=== PATIENT | female | born 1995 | race Hispanic/Latino ===

== ENCOUNTER 2023-04-23 10:04 | Emergency (ER) | payer SELFPAY ==
--- OUTSIDE RECORDS SUMMARY | 2023-04-23 10:33 | XMS REPORT | Continuity of Care Document ---
:1995 Author Organization [facility] t Address [address] [facility] [address] [place] [address] Care Team Providers Name Role Phone Alina Carrasco APRN Attending Clinician Payers Payer Name Policy Type Policy Number Effective Date Expiration Date S ource [employer] [place] [id number] 2023 00:00:00 WOMEN Problems This patient has no known problems. Allergies, Adverse Reactions, Alerts This patient has no known allergies or adverse reactions. Social History Social Habit Start Date Stop Date Quantity Comments Source Tobacco use and 2023-03-28 2023-03-28 User of smokeless [facility] exposure 00:00:00 00:00:00 tobacco Alcohol intake 2023-03-28 2023-03-28 Current drinker of [facility] 00:00:00 00:00:00 alcohol (finding) History SDOH 2023-03-28 2023-03-28 2 [facility] Alcohol Frequency 00:00:00 00:00:00 History SDOH 2023-03-28 2023-03-28 2 [facility] Alcohol Std Drinks 00:00:00 00:00:00 History SDOH 2023-03-28 2023-03-28 2 [facility] Alcohol Binge 00:00:00 00:00:00 Education 2023-03-28 2023-03-28 13 [facility] 00:00:00 00:00:00 Tobacco Comment 2023-03-28 2023-03-28 Vaping [facility] 00:00:00 00:00:00 Alcohol Comment 2023-03-28 2023-03-28 Rare [facility] 00:00:00 00:00:00 Sex Assigned At [birth year] [facility] 00:00:00 00:00:00 Smoking Status Start Date Stop Date Source Never smoked tobacco [facility] Medications Ordered Filled Start Stop Current Ordering Indication Dosage Frequency Signature Comments Components Source Medication Medication Date Date Medication? Clinician (SIG) Name Name medroxyPROG 2023- Yes 1474 150mg [facility] ESTERone 03-28 Health (Depo-Prove 15:00: 14:59 ra) 00 :00 injection 150 mg medroxyPROG 2023- Yes 1474 150mg 150 mg, U T ESTERone 03-28 Intr[facility]cu [facility] (Depo-Prove 15:00: 14:59 lar, Every ra) 00 :00 3 months, injection First dose 150 mg on Fri03/28/23 at 1000, For 4 doses
I ndications : Contracept gerald Therapy metroNIDAZO 2022- Yes [id number] 500mg Q.5D Take 1 [facility] LE (Flagyl) 03-28 tablet [facility] 500 MG 00:00: 04:59 (500 mg tablet 00 :00 total) by mouth in the morning and 1 tablet (500 mg total) in the evening. Do all this for 7 days. Vital Signs Vital Name Observation Time Observation Value Comments Source Systolic blood pressure 2023-03-28 14:21:00 119 mm[Hg] [facility] Diastolic blood pressure 2023-03-28 14:21:00 82 mm[Hg] [facility] Heart rate 2023-03-28 14:21:00 74 /min [facility] Body temperature 2023-03-28 14:21:00 36.78 Renita [facility] Respiratory rate 2023-03-28 14:21:00 20 /min [facility] Body height 2023-03-28 14:21:00 160 cm [facility] Body weight 2023-03-28 14:21:00 51.37 kg [facility] BMI 2023-03-28 14:21:00 20.07 kg/m2 [facility] Oxygen saturation in 2023-03-28 14:21:00 100 /min [facility] Arterial blood by Pulse oximetry Procedures This patient has no known procedures. Encounters Start End Encounter Admission Attending Care Care Encounter Source Date/Time Date/Time Type Type Clinicians Facility Department ID 2023-03-28 Outpatient [facility] ER [id number] [place] 00:38:[id number] [facility] 2023-03-27 Outpatient [facility] ER [id number] [place] 13:27:[id number] [facility] 2023-03-28 2023-03-28 Office UMU Carrasco [facility] [id number] [place] 09:15:00 10:06:31 Visit Alina ADAM [id number] Handy HERNANDEZ 1 [id number] Results This patient has no known results.
[2023-04-23] MEDS ORDERED: ACETAMINOPHEN 325 MG TABLET ONE (12:24)
[2023-04-23 12:33] LABS: Specific Gravity 1.021 (1.005-1.030)
[2023-04-23 12:37] LABS: Specific Gravity 1.021 (1.005-1.030); Urine Bacteria None Seen /HPF (<20); Urine Bilirubin NEGATIVE (Negative); Urine Blood Negative (Negative); Urine Clarity Clear (Clear); Urine Color Light-Yellow (Yellow); Urine Glucose NEGATIVE (Negative); Urine Mucus Slight /HPF (None Seen); Urine Protein TRACE (Negative); Urine RBC <5 /HPF (None Seen); Urine Urobilinogen 1+ (Normal)
--- NOTE | 2023-04-23 13:01 | ER ---
Nurse's Notes [facility] Name: Rand Epps Age: 27 yrs Sex: Female : 1995 Arrival Date: 04/23/2023 Time: 10:04 Bed 14 Private MD: Diagnosis: Viral infection, unspecified;Acute upper respiratory infection, unspecified Presentation: 04/23 10:16 Chief complaint: Patient states: Body aches, chills, headache, sore throat and nausea x ph 2 days. Coronavirus screen: Vaccine status: Patient reports being unvaccinated. Ebola Screen: No symptoms or risks identified at this time. Initial Sepsis Screen: Does the patient meet any 2 criteria? No. Patient's initial sepsis screen is negative. Does the patient have a suspected source of infection? No. Patient's initial sepsis screen is negative. Risk Assessment: Do you want to hurt yourself or someone else? Patient reports no desire to harm self or others. Onset of symptoms was April 23, 2023. 10:16 Method Of Arrival: Ambulatory ph 10:16 Acuity: JESUS 4 ph Triage Assessment: 10:18 General: Appears in no apparent distress. comfortable, Behavior is calm, cooperative, ph appropriate for age. Neuro: Level of Consciousness is awake, alert, obeys commands, Oriented to person, place, time, situation. 11:10 Headache History: The patient has had previous headaches. Pain: Complains of pain in [facility] head Pain currently is 8 out of 10 on a pain scale. Pain began 2-3 days ago. Also complains of nausea. 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 - Social history:: Smoking status: Reported history of juuling and/or vaping. - Family history:: not pertinent. - Hospitalizations: : No recent hospitalization is reported. Screenin:10 [facility] ED Fall Risk Assessment (Adult) History of falling in the last 3 months, [facility] including since admission No falls in past 3 months (0 pts). Abuse screen: Denies threats or abuse. Denies injuries from another. Nutritional screening: No deficits noted. Tuberculosis screening: No symptoms or risk factors identified. Assessment: 11:08 Reassessment: See triage assessment. ma1 11:08 Pain: Complains of pain in generalized Pain currently is 8 out of 10 on a pain scale. nj1 12:19 Reassessment: Patient appears in no apparent distress at this time. Patient and/or nj1 family updated on plan of care and expected duration. Pain level reassessed. Patient is alert, oriented x 3, equal unlabored respirations, skin warm/dry/pink. 13:22 Reassessment: Patient appears in no apparent distress at this time. Patient and/or nj1 family updated on plan of care and expected duration. Pain level reassessed. Patient is alert, oriented x 3, equal unlabored respirations, skin warm/dry/pink. Patient states feeling better. Vital Signs: 10:16 BP 132 / 90; Pulse 83; Resp 18; Temp 98.3; Pulse Ox 100% on R/A; Weight 54.43 kg; ph Height 5 ft. 3 in. ; 11:10 BP 122 / 93; Pulse 86; Resp 18; Pulse Ox 100% on R/A; Pain 8/10; nj1 12:16 BP 105 / 83; Pulse 73; Resp 16; Temp 98.6(O); Pulse Ox 100% ; nj1 13:22 BP 106 / 71; Pulse 66; Resp 16; Pulse Ox 100% ; Pain 6/10; nj1 10:16 Body Mass Index 21.26 (54.43 kg, 160.02 cm) ph 11:10 Pain Scale: Adult [facility] 13:22 Pain Scale: Adult [facility] ED Course: 10:08 Patient arrived in ED. mg5 10:10 Jose Mendoza MD is Attending Physician. rn 10:18 Triage completed. ph 10:18 Hellen Burch, RAIN is Primary Nurse. nj1 10:18 Arm band placed on Patient placed in an exam room, on a stretcher. ph 11:10 Patient has correct armband on for positive identification. Bed in low position. Call [facility] light in reach. Adult w/ patient. 11:10 Provided Education on: fall precautions. nj1 13:49 No provider procedures requiring assistance completed. Patient did not have IV access [facility] during this emergency room visit. Administered Medications: 12:16 Drug: Acetaminophen PO 650 mg Route: PO; nj1 13:22 Follow up: Response: No adverse reaction; Pain is decreased nj1 Medication: 13:49 VIS not applicable for this client. nj1 Outcome: 13:01 Discharge ordered by . rn 13:49 Discharged to home ambulatory. nj1 13:49 Condition: stable 13:49 Discharge instructions given to patient, Instructed on discharge instructions, follow up and referral plans. Demonstrated understanding of instructions, follow-up care, medications, Prescriptions given X 1. 13:49 Patient left the ED. nj1 Signatures: Jose Mendoza MD MD rn Hall, Patricia, RN RN ph Jaco, Norma, RN RN nj1 Mis Johnson mg5 Corrections: (The following items were deleted from the chart) 13:48 13:22 Pulse 66bpm; Resp 16bpm; Pulse Ox 100%; nj1 nj1
--- NOTE | 2023-04-23 13:01 | EDPHYS ---
Physician Documentation [facility] Name: Rand Epps Age: 27 yrs Sex: Female : 1995 Arrival Date: 04/23/2023 Time: 10:04 Bed 14 Private MD: ED Physician Jose Mendoza HPI: 04/23 10:49 This 27 yrs old Female presents to ER via Ambulatory with complaints of rn Headache, BODY ACHES, CHILLS, Nausea. 10:52 The patient reports fever, not measured (subjective). Onset: The symptoms/episode rn began/occurred 2 day(s) ago. Modifying factors: there are no obvious modifying factors. Associated signs and symptoms: Pertinent positives: chills, nausea, runny nose, sinus congestion, Pertinent negatives: abdominal pain, altered mental status, chest pain, shortness of breath, swelling, vomiting. Severity of symptoms: At their worst the symptoms were mild in the emergency department the symptoms are unchanged. The patient has not experienced similar symptoms in the past. The patient has not recently seen a physician. Pt reports fever, chills, headache, runny nose, congestion, + nausea. 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 - Social history:: Smoking status: Reported history of juuling and/or vaping. - Family history:: not pertinent. - Hospitalizations: : No recent hospitalization is reported. ROS: 10:52 Constitutional: + fever and chills Eyes: Negative for injury, pain, redness, and rn outpatient surgery, ENT: + congestion and sore throat Neck: Negative for injury, pain, and swelling, Cardiovascular: Negative for chest pain, palpitations, and edema, Respiratory: Negative for shortness of breath, cough, wheezing, and pleuritic chest pain, Abdomen/GI: + nausea, negative for abd pain : Negative for injury, bleeding, discharge, and swelling, MS/Extremity: Negative for injury and deformity, Skin: Negative for injury, rash, and discoloration, Neuro: + headache and generalized weakness Exam: 10:52 Constitutional: This is a well developed, well nourished patient who is awake, alert, rn and in no acute distress. Head/Face: Normocephalic, atraumatic. ENT: + pharyngeal erythema, uvula midline, no stridor, no exudate Cardiovascular: Regular rate and rhythm. No pulse deficits. Respiratory: No increased work of breathing, no retractions or nasal flaring. Skin: Warm, dry with normal turgor. Normal color with no rashes, no lesions, and no evidence of cellulitis. MS/ Extremity: Pulses equal, no cyanosis. Neuro: Awake and alert, GCS 15 Vital Signs: 10:16 BP 132 / 90; Pulse 83; Resp 18; Temp 98.3; Pulse Ox 100% on R/A; Weight 54.43 kg; ph Height 5 ft. 3 in. ; 11:10 BP 122 / 93; Pulse 86; Resp 18; Pulse Ox 100% on R/A; Pain 8/10; nj1 12:16 BP 105 / 83; Pulse 73; Resp 16; Temp 98.6(O); Pulse Ox 100% ; nj1 13:22 BP 106 / 71; Pulse 66; Resp 16; Pulse Ox 100% ; Pain 6/10; nj1 10:16 Body Mass Index 21.26 (54.43 kg, 160.02 cm) ph 11:10 Pain Scale: Adult nj1 13:22 Pain Scale: Adult nj1 MDM: 10:10 Patient medically screened. rn 13:00 Differential diagnosis: viral Infection, bacterial infection, URI. Differential rn diagnosis: UTI. Data reviewed: vital signs, nurses notes. Data reviewed: lab test result(s), and as a result, I will discharge patient. Counseling: I had a detailed discussion with the patient and/or guardian regarding: the historical points, exam findings, and any diagnostic results supporting the discharge/admit diagnosis, lab results, the need for outpatient follow up, to return to the emergency department if symptoms worsen or persist or if there are any questions or concerns that arise at home. Special discussion: I discussed with the patient/guardian in detail that at this point there is no indication for admission to the hospital. It is understood, however, that if the symptoms persist or worsen the patient needs to return immediately for re-evaluation. 04/23 10:25 Order name: SARS-COV-2 RT PCR; Complete Time: 12:13 rn 04/23 10:25 Order name: Flu; Complete Time: 12:13 rn 04/23 10:25 Order name: Strep rn 04/23 10:25 Order name: Test, Urine; Complete Time: 13:00 rn 04/23 10:25 Order name: Urinalysis w/ reflexes; Complete Time: 13:00 rn 04/23 12:03 Order name: Throat Culture EDMS Administered Medications: 12:16 Drug: Acetaminophen PO 650 mg Route: PO; nj1 13:22 Follow up: Response: No adverse reaction; Pain is decreased nj1 Disposition Summary: 04/23/23 13:01 Discharge Ordered Location: Home rn Problem: new rn Symptoms: have improved rn Condition: Stable rn Diagnosis - Viral infection, unspecified rn - Acute upper respiratory infection, unspecified rn Followup: rn - With: Private Physician - When: As needed - Reason: Recheck today's complaints, Re-evaluation by your physician Discharge Instructions: - Discharge Summary Sheet rn - Upper Respiratory Infection, Adult rn - Viral Respiratory Infection rn Forms: - Medication Reconciliation Form rn - Thank You Letter rn - Antibiotic environmental engineering intern - Prescription Opioid Use rn - Patient Portal Instructions rn - Work release form nj1 Prescriptions: - ondansetron 4 mg Oral Tablet,disintegrating - take 1 tablet by ORAL route every 8 hours As needed; 10 tablet; Refills: 0, rn Product Selection Permitted Signatures: Dispatcher [employer] Jose Kirk MD MD rn Hall, Patricia RN Hellen Arthur ph, RN RN nj1
[2023-04-23 14:10] VITALS: O2SAT 100
[2023-04-23 14:12] VITALS: TEMP 98.6
[2023-04-23 14:13] VITALS: BP 106/71
== END 2023-04-23 13:49 | disposition home or self-care (01) ==
LOC: ER 10:04
DX: B34.9 Viral infection, unspecified (principal); J06.9 Acute upper respiratory infection, unspecified; Z20.822 Contact with and (suspected) exposure to COVID-19
CPT/HCPCS: 81001; 81025; 87070; 87081; 87635; 87804; 99283

== ENCOUNTER 2023-07-27 20:18 | Emergency (ER) | payer SELFPAY ==
--- OUTSIDE RECORDS SUMMARY | 2023-07-27 20:25 | XMS REPORT | Continuity of Care Document ---
:1995 Author Organization [facility] t Address [address] [facility] [address] [place] [id number] Care Team Providers Name Role Phone Alina Carrasco APRN Attending Clinician Payers Payer Name Policy Type Policy Number Effective Date Expiration Date S ource [employer] [place] [id number] 2023 00:00:00 WOMEN Problems This patient has no known problems. Allergies, Adverse Reactions, Alerts This patient has no known allergies or adverse reactions. Social History Social Habit Start Date Stop Date Quantity Comments Source Tobacco use and 2023-03-28 2023-03-28 User of smokeless [facility] exposure 00:00:00 00:00:00 tobacco Alcohol intake 2023-03-28 2023-03-28 Current drinker of [facility] 00:00:00 00:00:00 alcohol (finding) History SDMO 2023-03-28 2023-03-28 2 [facility] Alcohol Frequency 00:00:00 00:00:00 History SDOH 2023-03-28 2023-03-28 2 [facility] Alcohol Std Drinks 00:00:00 00:00:00 History SDOH 2023-03-28 2023-03-28 2 [facility] Alcohol Binge 00:00:00 00:00:00 Education 2023-03-28 2023-03-28 13 [facility] 00:00:00 00:00:00 Tobacco Comment 2023-03-28 2023-03-28 Vaping [facility] 00:00:00 00:00:00 Alcohol Comment 2023-03-28 2023-03-28 Rare [facility] 00:00:00 00:00:00 Sex Assigned At [address] 1995 [facility] 00:00:00 00:00:00 Smoking Status Start Date Stop Date Source Never smoked tobacco [facility] Medications Ordered Filled Start Stop Current Ordering Indication Dosage Frequency Signature Comments Components Source Medication Medication Date Date Medication? Clinician (SIG) Name Name medroxyPROG 2023- No 1474 150mg [facility] ESTERone 03-28 Health (Depo-Prove 15:00: 14:59 ra) 00 :00 injection 150 mg medroxyPROG 2023- No 1474 150mg 150 mg, U T ESTERone 03-28 Intramuscu [facility]al [facility] (Depo-Prove 15:00: 14:59 lar, Every ra) 00 :00 3 months, injection First dose 150 mg on Fri03/28/23 at 1000, For 4 doses
I ndications : Contracept gerald Therapy metroNIDAZO 2022- No [id number] 500mg Q.5D Take 1 UT LE (Flagyl) 03-28 tablet [facility] 500 MG 00:00: 04:59 (500 mg tablet 00 :00 total) by mouth in the morning and 1 tablet (500 mg total) in the evening. Do all this for 7 days. Vital Signs Vital Name Observation Time Observation Value Comments Source Systolic blood pressure 2023-03-28 14:21:00 119 mm[Hg] [facility] Diastolic blood pressure 2023-03-28 14:21:00 82 mm[Hg] [facility] Heart rate 2023-03-28 14:21:00 74 /min [facility] Body temperature 2023-03-28 14:21:00 36.78 Renita [facility] Respiratory rate 2023-03-28 14:21:00 20 /min [facility] Body height 2023-03-28 14:21:00 160 cm [facility] Body weight 2023-03-28 14:21:00 51.37 kg [facility] BMI 2023-03-28 14:21:00 20.07 kg/m2 [facility] Oxygen saturation in 2023-03-28 14:21:00 100 /min [facility] Arterial blood by Pulse oximetry Procedures This patient has no known procedures. Encounters Start End Encounter Admission Attending Care Care Encounter Source Date/Time Date/Time Type Type Clinicians Facility Department ID 2023-03-28 Outpatient [facility] [id number] [place] 00:38:41 [id number] [facility] 2023-03-27 Outpatient [facility] [id number] [place] 13:27:03 [id number] [facility] 2023-03-28 2023-03-28 Office UMU Carrasco [facility] [id number] [place] 09:15:00 10:06:31 Visit Alina [facility] [id number] Handy HERNANDEZ 1 [id number] Results This patient has no known results.
[2023-07-27] MEDS ORDERED: NA CHLORIDE 0.9% 2,000 ML ONE (21:23)
[2023-07-27 21:34] LABS: Absolute Lymphocytes (CBC) 3.1 K/uL (0.7-4.9); Hematocrit 37.3 % (36.0-45.0); Lymphocytes % 46.8 % (15.3-44.8); MCV 87.5 fL (80-100); MPV 9.3 fL (7.6-11.3); Platelets 233 thou/uL (152-406); RBC Red Blood Cell Count 4.26 M/uL (3.86-4.86)
--- NOTE | 2023-07-27 21:45 | RAD REPORT ---
EXAM DESCRIPTION: US - Transvaginal Study Probe - 07/27/2023 9:37 pm CLINICAL HISTORY: pain Pelvic pain. COMPARISON: No comparisons FINDINGS: The uterus is normal in size, shape and echotexture. The uterus measures 7.2 x 5 x 5.5 cm The endometrial stripe measures 4 mm, normal. Both ovaries are normal in size, shape and echotexture. The right ovary measures 4.1 x 2.5 x 2.8 cm with volume of 14.7 cc. The left ovary measures 3.1 x 2 x 1.6 cm with volume of 5.2 cc. Several foll icles present in the right ovary. No adnexal masses. Normal Doppler blood flow was demonstrated to both ovaries. Small volume of pelvic free fluid. IMPRESSION: Small volume of pelvic free fluid which is likely physiologic.Bilateral ovarian blood fl ow.
[2023-07-27 21:53] LABS: Albumin 4.1 g/dL (3.4-5.0); Bilirubin Total 0.6 mg/dL (0.2-1.0); Potassium 3.2 mEq/L (3.5-5.1); Protein, Total 7.6 g/dL (6.4-8.2)
[2023-07-27 21:55] LABS: Specific Gravity 1.022 (1.005-1.030)
[2023-07-27 22:09] LABS: Specific Gravity 1.022 (1.005-1.030); Urine Bacteria None Seen /HPF (<20); Urine Bilirubin NEGATIVE (Negative); Urine Blood 3+ (OVER) (Negative); Urine Clarity Extremely Turbid (Clear); Urine Color Red (Yellow); Urine Glucose NEGATIVE (Negative); Urine Protein 2+ (Negative); Urine RBC >50 /HPF (None Seen); Urine Urobilinogen Normal (Normal)
[2023-07-27] MEDS ORDERED: FENTANYL CITR 100 MCG/2 ML ONE (22:25)
--- NOTE | 2023-07-27 22:35 | RAD REPORT ---
EXAM DESCRIPTION: RAD - Chest Single View - 07/27/2023 10:31 pm CLINICAL HISTORY: ABD PAIN COMPARISON: No comparisons FINDINGS: Lines: None. Lungs: No evidence of edema or pneumonia. Pleural: No significant pleural effusions or pneumothorax. Cardiac: The heart size is within normal limits. Mediastinum: Within normal limits. Bones: No acute fractures. Other: None IMPRESSION: No acute cardiopulmonary disease.
--- NOTE | 2023-07-27 23:54 | EDPHYS ---
Physician Documentation [facility] Name: Rand Epps Age: 27 yrs Sex: Female : 1995 Arrival Date: 07/27/2023 Time: 20:18 Bed 6 Private MD: ED Physician Peña Ellis HPI: 07/27 20:49 This 27 yrs old Female presents to ER via Ambulatory with complaints of snw Abdominal Pain, Pelvic Pain, Nausea/Vomiting. 20:49 The patient presents with abdominal pain in the left lower quadrant. Onset: The snw symptoms/episode began/occurred acutely, 2 day(s) ago, and became worse and became persistent. Associated signs and symptoms: Pertinent positives: nausea and vomiting, vaginal discharge, vaginal bleeding. The symptoms are described as sharp, shooting. Severity of pain: At its worst the pain was moderate severe. The patient has not experienced similar symptoms in the past. It is unknown whether or not the patient has recently seen a physician. 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 - Social history:: Smoking status: Patient denies any tobacco usage or history of. ROS: 20:48 Eyes: Negative for injury, pain, redness, and discharge, ENT: Negative for injury, snw pain, and discharge, Neck: Negative for injury, pain, and swelling, Cardiovascular: Negative for chest pain, palpitations, and edema, Respiratory: Negative for shortness of breath, cough, wheezing, and pleuritic chest pain, 20:48 Back: Negative for injury and pain, MS/Extremity: Negative for injury and deformity, Skin: Negative for injury, rash, and discoloration, Neuro: Negative for headache, weakness, numbness, tingling, and seizure, Psych: Negative for depression, anxiety, suicide ideation, homicidal ideation, and hallucinations, 20:48 Constitutional: Positive for body aches, chills, fatigue, malaise, 20:48 Abdomen/GI: Positive for abdominal pain, nausea and vomiting, of the left lower quadrant, 20:48 : Positive for vaginal bleeding, Exam: 20:47 Constitutional: This is a well developed, well nourished patient who is awake, alert, snw with chills, LMP 2 weeks ago and then had brown discharge with significant vag bleeding two days ago Head/Face: Normocephalic, atraumatic. Eyes: Pupils equal round and reactive to light, extra-ocular motions intact. Lids and lashes normal. Conjunctiva and sclera are non-icteric and not injected. Cornea within normal limits. Periorbital areas with no swelling, redness, or edema. ENT: Nares patent. No nasal discharge, no septal abnormalities noted. Tympanic membranes are normal and external auditory canals are clear. Oropharynx with no redness, swelling, or masses, exudates, or evidence of obstruction, uvula midline. Mucous membranes moist. Neck: Trachea midline, no thyromegaly or masses palpated, and no cervical lymphadenopathy. Supple, full range of motion without nuchal rigidity, or vertebral point tenderness. No Meningismus. Chest/axilla: Normal chest wall appearance and motion. Nontender with no deformity. No lesions are appreciated. Cardiovascular: Regular rate and rhythm with a normal S1 and S2. No gallops, murmurs, or rubs. Normal PMI, no JVD. No pulse deficits. Respiratory: Lungs have equal breath sounds bilaterally, clear to auscultation and percussion. No rales, rhonchi or wheezes noted. No increased work of breathing, no retractions or nasal flaring. 20:47 Back: No spinal tenderness. No costovertebral tenderness. Full range of motion. Skin: Warm, dry with normal turgor. Normal color with no rashes, no lesions, and no evidence of cellulitis. MS/ Extremity: Pulses equal, no cyanosis. Neurovascular intact. Full, normal range of motion. Neuro: Awake and alert, GCS 15, oriented to person, place, time, and situation. Cranial nerves II-XII grossly intact. Motor strength 5/5 in all extremities. Sensory grossly intact. Cerebellar exam normal. Normal gait. Psych: Awake, alert, with orientation to person, place and time. Behavior, mood, and affect are within normal limits. 20:47 Abdomen/GI: Inspection: abdomen appears normal, Bowel sounds: normal, Palpation: severe abdominal tenderness, in the left lower quadrant, Vital Signs: 20:39 BP 137 / 97; Pulse 73; Resp 16; Temp 98.7; Pulse Ox 100% ; Weight 54.43 kg; Height 5 ap3 ft. 4 in. ; 22:54 BP 107 / 67; Pulse 66; Resp 18; Pulse Ox 100% on R/A; Pain 0/10; la4 22:58 Pain 0/10; la4 07/28 00:22 BP 108 / 69; Pulse 75; Resp 18; Pulse Ox 99% on R/A; la4 07/27 20:39 Body Mass Index 20.60 (54.43 kg, 162.56 cm) ap3 22:54 Pain Scale: Adult la4 22:58 Pain Scale: Adult la4 Cuco Coma Score: 07/27 22:54 Eye Response: spontaneous(4). Motor Response: obeys commands(6). Verbal Response: la4 oriented(5). Total: 15. 07/28 00:20 Eye Response: spontaneous(4). Motor Response: obeys commands(6). Verbal Response: la4 oriented(5). Total: 15. MDM: 07/27 20:32 Patient medically screened. snw 23:52 Differential diagnosis: Ectopic , Endometriosis, Ovarian Torsion, urinary snw tract infection. Data reviewed: vital signs, nurses notes, lab test result(s), radiologic studies, ultrasound. I considered the following discharge prescriptions or medication management in the emergency department Medications were administered in the Emergency Department. See MAR. Counseling: I had a detailed discussion with the patient and/or guardian regarding the historical points, exam findings, and any diagnostic results supporting the discharge/admit diagnosis, lab results, radiology results, the need for outpatient follow up, for definitive care, to return to the emergency department if symptoms worsen or persist or if there are any questions or concerns that arise at home. Response to treatment: the patient's symptoms have markedly improved after treatment. Special discussion: Based on the patient's Hx, exam, and Dx evaluation, there is no indication for emergent surgery or inpatient Tx. It is understood by the patient/guardian that if the Sx's persist or worsen they need to return immediately for re-evaluation. Based on the history and exam findings, there is no indication for further emergent testing or inpatient evaluation. I discussed with the patient/guardian the need to see the OB Gyne specialist for further evaluation of the symptoms. I discussed with the patient/guardian the need to see the primary care provider for further evaluation of the symptoms. 07/27 21:31 Order name: Comprehensive Metabolic Panel; Complete Time: 22:03 EDMS 07/27 21:32 Order name: Lactate w/ 2H reflex if indic.; Complete Time: 22:03 EDMS 07/27 21:32 Order name: CBC with Automated Diff; Complete Time: 22:03 EDMS 07/27 21:32 Order name: Urinalysis w/ reflexes; Complete Time: 22:37 EDMS 07/27 21:32 Order name: Test, Urine; Complete Time: 22:03 EDMS 07/27 21:32 Order name: Blood Culture EDMS 07/27 22:15 Order name: Blood Culture EDMS 07/27 22:20 Order name: Urine Culture EDFL 07/27 21:01 Order name: Transvaginal Study Probe; Complete Time: 22:03 EDMS 07/27 22:17 Order name: Chest Single View; Complete Time: 22:37 EDMS 07/27 20:47 Order name: Accucheck; Complete Time: 22:15 snw 07/27 20:47 Order name: Cardiac monitoring; Complete Time: 22:07 snw 07/27 20:47 Order name: EKG - Nurse/Tech; Complete Time: 22:07 snw 07/27 20:47 Order name: IV Saline Lock - Large Bore; Complete Time: 21:24 snw 07/27 20:47 Order name: Labs collected and sent; Complete Time: 21:24 snw 07/27 20:47 Order name: O2 Per Protocol; Complete Time: 22:07 snw 07/27 20:47 Order name: O2 Sat Monitoring; Complete Time: 22:07 snw 07/27 20:47 Order name: Vital Signs; Complete Time: 22:07 snw Administered Medications: 21:23 Drug: NS 0.9% IV (30 ml/kg) 30 ml/kg IV at bolus once; Sepsis Protocol Route: IV; Rate: la4 bolus; Infused Over: 30 mins; Site: right wrist; Delivery: Primary tubing; 22:14 Drug: fentaNYL (PF) IVP 25 mcg IVP once Route: IVP; Site: right wrist; la4 22:58 Follow up: Pain 0/10 Adult; Response: Pain is decreased la4 22:21 CANCELLED (Other Intervention Used): ondansetron4 mg PO once la4 07/28 00:20 Drug: Potassium Chloride PO 40 mEq PO once Route: PO; nw1 Disposition: 00:51 I was immediately available on-site in the Emergency Department for consultation in the ms3 care of the patient. Disposition Summary: 07/27/23 23:54 Discharge Ordered Notes: Location: Home snw Condition: Stable snw Diagnosis - Other and unspecified ovarian cysts snw - Follicular cyst of ovary snw - Hypokalemia snw Followup: snw - With: Emergency Department - When: As needed - Reason: Worsening of condition, Re-evaluation by your physician Followup: snw - With: Private Physician - When: 5 - 6 days - Reason: Recheck today's complaints, Continuance of care, Re-evaluation by your physician Discharge Instructions: - Discharge Summary Sheet snw - Potassium Content of Foods snw - Ovarian Cyst, [id number] snw - Rehydration, Adult snw - Heat Therapy snw Forms: - Medication Reconciliation Form snw - Thank You Letter snw - Antibiotic Education snw - Prescription Opioid Use snw - Patient Portal Instructions snw - Leadership Thank You Letter snw Prescriptions: - Mobic 7.5 mg Oral Tablet - take 1 tablet ORAL route once daily take with food; 20 tablet; Refills: 0, snw Product Selection Permitted Signatures: Dispatcher [employer] EDFL Leeanne Sneed, TATYANA-C MONEY LAUNDERING INVESTIGATOR-Csnw Radha Huerta RN RN [email or web address] Peña Ellis DO DO ms3 Jeff Pennington RN RN la4 Darlene Lal, RN RN nw1 Corrections: (The following items were deleted from the chart) 07/27 22:20 22:19 Fluid Challenge ordered. la4 la4 22:21 22:19 Ondansetron PO 4 mg PO once ordered. la4 la4
--- NOTE | 2023-07-27 23:54 | ER ---
Nurse's Notes [facility] Name: Rand Epps Age: 27 yrs Sex: Female : 1995 Arrival Date: 07/27/2023 Time: 20:18 Bed 6 Private MD: Diagnosis: Other and unspecified ovarian cysts;Follicular cyst of ovary;Hypokalemia Presentation: 07/27 20:39 Chief complaint: Patient states: SUPRAPUBIC CRAMPING AND PAIN, BROWN VAGINAL DISCHARGE ap3 SINCE FRIDAY. Coronavirus screen: At this time, the client does not indicate any symptoms associated with coronavirus-19. Ebola Screen: No symptoms or risks identified at this time. Initial Sepsis Screen: Does the patient meet any 2 criteria? No. Patient's initial sepsis screen is negative. Does the patient have a suspected source of infection? No. Patient's initial sepsis screen is negative. Risk Assessment: Do you want to hurt yourself or someone else? Patient reports no desire to harm self or others. Onset of symptoms is unknown. 20:39 Method Of Arrival: Ambulatory ap3 20:39 Acuity: JESUS 3 ap3 Triage Assessment: 20:40 General: Appears uncomfortable, Behavior is calm, cooperative, appropriate for age. ap3 Pain: Complains of pain in pelvis. GI: Reports nausea. 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 - Social history:: Smoking status: Patient denies any tobacco usage or history of. Screenin:29 [facility] ED Fall Risk Assessment (Adult) Score/Fall Risk Level 0 - 2 = Low Risk la4 Oriented to surroundings, Maintained a safe environment. Abuse screen: Denies threats or abuse. Denies injuries from another. Nutritional screening: No deficits noted. Tuberculosis screening: No symptoms or risk factors identified. Assessment: 21:24 General: Appears uncomfortable, Behavior is calm, cooperative, appropriate for age. la4 Pain: Complains of pain in suprapubic area, right lower quadrant and left lower quadrant Pain radiates to left mid back and right mid back Pain currently is 7 out of 10 on a pain scale. at worst was 10 out of 10 on a pain scale. level that patient reports is acceptable is 2 out of 10 on a pain scale. Quality of pain is described as crampy, sharp. Neuro: No deficits noted. [place] Agitation-Sedation Scale (RASS): 0 - Alert and Calm Level of Consciousness is awake, alert, obeys commands, Oriented to person, place, time, situation, Appropriate for age. Cardiovascular: No deficits noted. Respiratory: No deficits noted. GI: No deficits noted. Bowel sounds present X 4 quads. Abd is soft Abdomen is tender to palpation in right lower quadrant and left lower quadrant. : Urine is sawyer blood, Reports pain urinary frequency, Patient is sexually active. 23:14 Reassessment: Pt given warm blanket and something to rest her head on. Family at nw1 bedside. 0 s/s of acute distress noted. Call light at bedside. 07/28 00:15 Reassessment: Patient appears in no apparent distress at this time. No changes from la4 previously documented assessment. Patient is alert, oriented x 3, equal unlabored respirations, skin warm/dry/pink. Patient states feeling better. Patient states symptoms have improved. Spoke w/ provider and COVID and FLU no longer needed. Pt being discharged to home with family. Vital Signs: 07/27 20:39 BP 137 / 97; Pulse 73; Resp 16; Temp 98.7; Pulse Ox 100% ; Weight 54.43 kg; Height 5 ap3 ft. 4 in. ; 22:54 BP 107 / 67; Pulse 66; Resp 18; Pulse Ox 100% on R/A; Pain 0/10; la4 22:58 Pain 0/10; la4 07/28 00:22 BP 108 / 69; Pulse 75; Resp 18; Pulse Ox 99% on R/A; la4 07/27 20:39 Body Mass Index 20.60 (54.43 kg, 162.56 cm) ap3 22:54 Pain Scale: Adult la4 22:58 Pain Scale: Adult la4 Vitals: 07/27 22:54 Cardiac Rhythm Assessment Regular Sinus rhythm. la4 [place] Coma Score: 22:54 Eye Response: spontaneous(4). Motor Response: obeys commands(6). Verbal Response: la4 oriented(5). Total: 15. 07/28 00:20 Eye Response: spontaneous(4). Motor Response: obeys commands(6). Verbal Response: la4 oriented(5). Total: 15. ED Course: 07/27 20:27 Patient arrived in ED. jj6 20:31 Leeanne Sneed FNP-C is [facility]. snw 20:31 Peña Ellis DO is Attending Physician. snw 20:40 Triage completed. ap3 20:40 Arm band placed on. ap3 20:47 Jeff Pennington RN is Primary Nurse. la4 21:30 Patient has correct armband on for positive identification. Placed in gown. Bed in low la4 position. Call light in reach. Side rails up X2. Adult w/ patient. Provided Education on: plan of care. 21:31 No provider procedures requiring assistance completed. Inserted saline lock: 20 gauge la4 in right wrist, using aseptic technique. Missed attempt(s): 20 gauge in right hand. 21:39 Transvaginal Study Probe In Process Unspecified. EDMS 22:32 Chest Single View In Process Unspecified. EDMS 23:51 Urine Culture Sent. nw1 07/28 00:17 intact, bleeding controlled, No redness/swelling at site. Pressure dressing applied. la4 Administered Medications: 07/27 21:23 Drug: NS 0.9% IV (30 ml/kg) 30 ml/kg IV at bolus once; Sepsis Protocol Route: IV; Rate: la4 bolus; Infused Over: 30 mins; Site: right wrist; Delivery: Primary tubing; 22:14 Drug: fentaNYL (PF) IVP 25 mcg IVP once Route: IVP; Site: right wrist; la4 22:58 Follow up: Pain 0/10 Adult; Response: Pain is decreased la4 22:21 CANCELLED (Other Intervention Used): ondansetron4 mg PO once la4 07/28 00:20 Drug: Potassium Chloride PO 40 mEq PO once Route: PO; nw1 Medication: 00:18 VIS not applicable for this client. la4 Outcome: 07/27 23:54 Discharge ordered by . snw 07/28 00:17 Discharged to home ambulatory, with family, la4 Condition: improved Discharge instructions given to patient, family, Instructed on discharge instructions, follow up and referral plans. no drinking with medication, safe sex practices, follow up with [facility] services Demonstrated understanding of 00:25 Patient left the ED. tristin Signatures: Dispatcher [employer] Leeanne Lassiter FNP-C MARKETING AND DEVELOPMENT COORDINATOR-Immanuelw Radha Huerta, RN RN ap3 Christy Beck6 Jeff Pennington RN RN la4 Darlene Lal RN RN nw1
[2023-07-28] MEDS ORDERED: POTASSIUM CL SA 10 MEQ TAB PO ONE (00:35)
== END 2023-07-28 00:25 | disposition home or self-care (01) ==
LOC: ER 20:18
DX: N83.299 Other ovarian cyst, unspecified side (principal); N83.00 Follicular cyst of ovary, unspecified side; E87.6 Hypokalemia
CPT/HCPCS: 36415; 71045; 76830; 80053; 81001; 81025; 83605; 85025; 87040; 87086; 87088; 96374; 96375; 99284; J3010; J7030